=== PATIENT | female | born 1990 | race Caucasian/White ===

== ENCOUNTER 2022-03-27 00:31 | Emergency (ER) | payer MEDICAID ==
[~2022-03-27] VITALS: Ht 160 cm; Wt 88.9 kg
[2022-03-27 00:42] VITALS: BP 140/89
[2022-03-27 02:43] LABS: BASOPHILS % 0.5 % (0.0-2.0); HEMATOCRIT. 41.5 % (36.0-48.0); HEMOGLOBIN. 14.5 g/dL (12.0-16.0); LYMPHOCYTES % 25.1 % (20.0-50.0); MEAN CORPUSCULAR HEMOGLOBIN 30.7 pg (28.0-32.0); MEAN CORPUSCULAR VOLUME 87.7 fL (81.0-99.0); MEAN PLATELET VOLUME 8.3 fl (7.4-10.4); MONOCYTES % 6.2 % (2.0-8.0); NEUTROPHILS % 67.2 % (40.0-76.0); PLATELET 258 x1000/uL (130-400); RED BLOOD CELL COUNT 4.73 mill/uL (4.2-5.4); RED CELL DISTRIBUTION WIDTH 13.1 % (11.6-14.6)
[2022-03-27 02:51] LABS: CHLORIDE 104 mEq/L (98-107)
[2022-03-27 03:00] LABS: HCG SCREEN NEGATIVE
[2022-03-27] MEDS ORDERED: ACETAMINOPHEN 500MG TABLET PO ONE (04:15)
== END 2022-03-27 06:27 | disposition home or self-care (01) ==
LOC: ER 00:31
DX: R00.2 Palpitations (principal); E11.9 Type 2 diabetes mellitus without complications; Z90.49 Acquired absence of other specified parts of digestive tract; Z98.890 Other specified postprocedural states
CPT/HCPCS: 36415; 71045; 80053; 83880; 84443; 84484; 84703; 85025; 85379; 93005; 99285